=== PATIENT | male | born 2005 | race Caucasian/White ===

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

== ENCOUNTER 2025-04-16 11:34 | Emergency (ER) | payer MEDICAID, SELFPAY ==
[2024-10-04 15:58] VITALS: BP 152/99; BMI 47.0
[2025-04-16 11:38] VITALS: BP 130/82; PULSE 98; RESP 17; TEMP 36.8; O2SAT 96; BMI 45.3
--- NOTE | 2025-04-16 11:42 | ECG_ITS ---
[facility] Test Date: 2025-04-16 Pat Name: Byron Alvarez Department: Room: Gender: Male [employer]: : 2005 Requested By: Magno Bright Order Number: [id number] Grossman MD: Narendra Luther M.D. Measurements Intervals [place] Rate: 93 P: 53 NV: 128 QRS: 68 QRSD: 83 T: 55 QT: 318 QTc: 397 Interpretive Statements SINUS RHYTHM POSSIBLE RIGHT VENTRICULAR CONDUCTION DELAY [RSR (QR) IN V1/V2] Compared to ECG 03/26/2024 22:36:21 Sinus arrhythmia no longer present T-wave abnormality no longer present Electronically Signed On 04-18-2025 09:49:58 LADLE MECHANIC by Narendra Luther M.D. [email or web address]
--- NOTE | 2025-04-16 11:52 | XR_ITS ---
WS: [id number] XR chest 1V portable [id number] REASON FOR EXAM: sob FINDINGS: Chemotherapy infusion port over the right chest with trans right internal jugular infusion catheter with the tip in the distal SVC. The heart and the mediastinum are within normal limits. Calcified granulomatous disease bilaterally. No acute pulmonary parenchymal or pleural abnormality. No significant abnormality of the bony thorax. XR/XR chest 1V portable [id number] IMPRESSION: No acute chest abnormality.
[2025-04-16 12:36] LABS: Hematocrit 48.6 % (37-53); Hemoglobin 15.30 g/dL (13.2-15.6); Mean Corpuscular HGB Conc 31.5 g/dL (30-55); Mean Corpuscular Hemoglobin 27.6 pg (27-33); Mean Corpuscular Volume 87.7 fl (82-101); Nucleated Red Blood Cells % 0 %; Platelet Count 244 10^3/cmm (157-399); Red Blood Count 5.54 10^6/uL (3.85-5.65); White Blood Count 6.38 10^3/uL (4.5-13.0)
[2025-04-16 13:01] LABS: Alanine Aminotransferase 20 U/L (0-41); Albumin Level 4.5 g/dL (3.5-5.2); Alkaline Phosphatase 112 U/L (40-130); Anion Gap 15.3 (5-19); Aspartate Amino Transferase 21 U/L (0-40); Blood Urea Nitrogen 17 mg/dL (6-20); Calcium 10.4 mg/dL (8.5-10.5); Carbon Dioxide 29 mmol/L (22-29); Chloride 101 mmol/L (98-107); Globulin 3.5 g/dL (1.3-4.6); Glucose 85 mg/dL (65-115); Osmolality Calculated 293 mOsm/kg (285-295); Potassium 4.3 mmol/L (3.5-5.1); Sodium 141 mmol/L (136-145); Total Protein 8.0 g/dL (6.6-8.7)
--- NOTE | 2025-04-16 13:49 | ED_ITS ---
HPI - SOB/Dyspnea 2 General: Chief Complaint: Shortness of Breath/Dyspnea Stated Complaint: Pain coming from port and chest area SOB Time Seen by Provider: 04/16/25 13:48 History of Present Illness: HPI Narrative: 20-year-old man with a history of depres esha, obesity, borderline intellectual functioning, and testicular cancer status posttreatment with a port that has been placed who presents to the emergency room with complaints of shortness of breath and some pain in his port area for about a week now. He says he has been becoming more short of breath than his heart has been racing. He feels somewhat dizzy. No cough. No fevers. Lungs are clear. Related Data Previous Rx's ?Medication ?Instructions ?Recorded trazodone 50 mg tablet 50 mg PO BEDTIME PRN insomni a #60 12/08/24 tabs aripiprazole 15 mg tablet (Abilify) 15 mg PO DAILY #30 tabs 02/21/25 atomoxetine 40 mg capsule 40 mg PO DAILY #30 caps 01/30 09/22 venlafaxine 75 mg capsule,extended 75 mg PO DAILY #30 caps 02/21/25 release 24 hr (Effexor XR) Allergies Allergy/AdvReac Type Severity Reaction Status Date / Time azithromycin (From Zithromax) Allergy ALGY-Hives Verified 02/21/25 13:45 docusate (From Colace) Allergy Unknown Verified 02/21/25 13:45 guaifenesin (From Mucinex) Allergy ALGY-Rash Verified 02/21/25 13:45 loratadine (From Claritin) Allergy sob Verified 02/21/25 13:45 topiramate (From Topamax) Allergy ADR-Anxiety Verified 02/21/25 13:45 Review of Systems 2 Narrative: Constitutional symptoms: Negative except as documented in HPI. Skin symptoms: Negative except as documented in HPI. Eye symptoms: Negative except as documented in HPI. ENMT symptoms: Negative except as documented in HPI. Respiratory symptoms: Negative except as documented in HPI. Cardiovascular symptoms: Negative except as documented in HPI. Gastrointestinal symptoms: Negative except as documented in HPI. Genitourinary symptoms: Negative except as documented in HPI. Musculoskeletal symptoms: Negative except as documented in HPI. Neurologic symptoms: Negative except as documented in HPI. Psychiatric symptoms: Negative except as documented in HPI. Endocrine symptoms: Negative except as documented in HPI. 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 Depression Problems related to lack of adequate sleep Mood swings [facility] Psychiatric care Cognitive and neurobehavioral dysfunction Problems related to lack of adequate sleep Other [facility] extermin[facility] (current) drug therapy Family History Other Diabetes Psychiatric illness Social History (Updated 09/28/24 @ 14:00 by Trina Azevedo RN) Smoking and tobacco/nicotine status: current every day tobacco/nicotine user e- cigarettes E-Cigarette Details: vaporizer device and with nicotine E-cig/vape details: 15,000 puffs last 1 to 1 1/2 weeks Second hand smoke exposure: No Alcohol intake: never Substance/Drug Use: current Substance/Drug use frequency: daily Adopted: Yes Caregiver/support person: No Lives independently: Yes Household members: family Housing: Manufactured/Mobile home Marital status: Single Number of children: 0 Number of grandchildren: 0 Highest education level completed: 11th Grade Education level details: dropped out in 12th grade service: No Current occupational status: unemployed Current occupational exposures/hazards: No Pets and animals: Yes Pets & animals: dog(s) Leisure activites: art and games Sexually active: No Do you think of yourself as: Straight/Heterosexual Current gender identity: Male Vilma/Rastafari: Anabaptist Special vilma needs: No Agree to transfusion: Yes Physical Exam 2 Narrative: EXAM NARRATIVE: General: Alert, no acute distress. Skin: Warm, dry. Head: Normocephalic, atraumatic. Neck: Supple, trachea midline. Eye: Extraocular movements are intact. Ears, nose, mouth and throat: mucosa moist. Cardiovascular: Regular, Normal peripheral perfusion. Respiratory: Lungs are clear to auscultation, respirations are non-labored, breath sounds are equal, Symmetrical chest wall expansion. Gastrointestinal: Soft, Nontender, Non distended Musculoskeletal: Normal ROM, no deformity. Neurological: Alert and oriented, No focal neurological deficit observed. Psychiatric: Cooperative, appropriate mood & affect. Course 2 Vital Signs: Vital signs: Vital Signs Temperature 98.2 F 04/16/25 11:38 Pulse Rate 98 04/16/25 11:38 Respiratory Rate 17 04/16/25 11:38 Blood Pressure 130/82 04/16/25 11:38 Pulse Oximetry 96 04/16/25 11:38 Oxygen Delivery Me thod Room Air 04/16/25 11:38 MDM - SOB/Dyspnea Medical Decision Making Medical decision making Patient's reason for coming to the emergency room: Shortness of breath Social determinants: Patient is unemployed and has borderline intellectual functioning. I reviewed the patient's medical record. Patient has had multiple admissions for psychiatric issues to this hospital. I reviewed the patient's current home meds Patient only takes psychiatric chronic medications at this point. Alternate historians: None Differential diagnosis for patient with shortness of breath includes but is not limited to and based on the above HPI, review of systems and physical exam: Pneumonia. Bronchitis. Asthma or COPD with acute exacerbation. Acute coronary syndrome / CT. Pulmonary embolism. Anxiety. Congestive heart failure. Viral infections including influenza and Covid-19. Atrial fibrillation. Anxiety. Pleural effusion. Pneumothorax. Orders placed to evaluate differential diagnosis based on the above differential, HPI and physical exam EKG: Time 11:44 AM. Rate 93. Normal sinus rhythm, No ST-T changes, no ectopy, normal RI & QRS intervals, This was reviewed and interpreted by myself the ER physician at 11:50 AM Chest x-ray: Port is in place. No acute process. No infiltrate. No pneumothorax. This was reviewed and interpreted by myself the emergency room physician. I also reviewed the radiology report. Lab Review: Laboratory results were reviewed and interpreted by myself the emergency room physician. No leukocytosis. No anemia. No renal failure. Assessment of risk: Level of risk: Moderate risk patient. Psychiatric issues and low intellectual functioning. Hospitalization considerations: No consideration of hospitalization today. Assessment and plan: Shortness of breath - Discharged home - Discussed plan with patient. Answered any questions. - Evaluation and treatment of this problem were appropriate in the emergency setting. Lab Data 04/16/25 12:16 04/16/25 12:16 Labs/Radiology: Radiology Impressions Chest X-Ray 04/16/25 11:52 IMPRESSION: No acute chest abnormality. Laboratory Results WBC 6.38 10^3/uL (4.5-13.0) 04/16/25 12:16 RBC 5.54 10^6/uL (3.85-5.65) 04/16/25 12:16 Hgb 15.30 g/dL (13.2-15.6) 04/16/25 12:16 Hct 48.6 % (37-53) 04/16/25 12:16 MCV 87.7 fl (82-101) 04/16/25 12:16 MCH 27.6 pg (27-33) 04/16/25 12:16 MCHC 31.5 g/dL (30-55) 04/16/25 12:16 RDW 15.7 % (12.1-15.1) H 04/16/25 12:16 Plt Count 244 10^3/cmm (157-399) 04/16/25 12:16 MPV 9.3 fL (7.4-10.4) 04/16/25 12:16 Neut % (Auto) 66.8 % 04/16/25 12:16 Lymph % (Auto) 24.0 % 04/16/25 12:16 Carson % (Auto) 7.2 % 04/16/25 12:16 Eos % (Auto) 1.4 % 04/16/25 12:16 Baso % (Auto) 0.3 % 04/16/25 12:16 Neut # (Auto) 4.26 10^3/uL (1.8-8.0) 04/16/25 12:16 Lymph # (Auto) 1.5 10^3/uL (1.5-6.5) 04/16/25 12:16 Carson # (Auto) 0.5 10^3/uL (0.2-0.9) 04/16/25 12:16 Eos # (Auto) 0.1 10^3/uL (0.0-0.8) 04/16/25 12:16 Baso # (Auto) 0.0 10^3/uL (0.0-0.1) 04/16/25 12:16 Nucleated RBC % (auto) 0 % 04/16/25 12:16 Nucleated RBCs # 0.0 /100WBC 04/16/25 12:16 Sodium 141 mmol/L (136-145) 04/16/25 12:16 Potassium 4.3 mmol/L (3.5-5.1) 04/16/25 12:16 Chloride 101 mmol/L (98-107) 04/16/25 12:16 Carbon Dioxide 29 mmol/L (22-29) 04/16/25 12:16 Anion Gap 15.3 (5-19) 04/16/25 12:16 BUN 17 mg/dL (6-20) 04/16/25 12:16 Creatinine 1.2 mg/dL (0.7-1.2) 04/16/25 12:16 GFR Calculation 77.2 mL/min (90-130) L 04/16/25 12:16 Glucose 85 mg/dL (65-115) 04/16/25 12:16 Calculated Osmolality 293 mOsm/kg (285-295) 04/16/25 12:16 Calcium 10.4 mg/dL (8.5-10.5) 04/16/25 12:16 Total Bilirubin 0.4 mg/dL (0.15-1.2) 04/16/25 12:16 AST 21 U/L (0-40) 04/16/25 12:16 ALT 20 U/L (0-41) 04/16/25 12:16 Alkaline Phosphatase 112 U/L (40-130) 04/16/25 12:16 Total Protein 8.0 g/dL (6.6-8.7) 04/16/25 12:16 Albumin 4.5 g/dL (3.5-5.2) 04/16/25 12:16 Globulin 3.5 g/dL (1.3-4.6) 04/16/25 12:16 All radiology interpretation(s) finalized by discharge Discharge Plan Discharge Patient Disposition: Home Clinical Impression: Shortness of breath Condition: Stable Prescriptions: No Action trazodone 50 mg tablet 50 mg PO BEDTIME PRN (Reason: insomnia) Qty: 60 3RF Rx Instructions: 1-2 tablets at bed time as needed aripiprazole [Abilify] 15 mg tablet 15 mg PO DAILY Qty: 30 3RF venlafaxine [Effexor XR] 75 mg capsule,extended release 24hr 75 mg PO DAILY Qty: 30 3RF atomoxetine 40 mg capsule 40 mg PO DAILY Qty: 30 3RF Discharge Orders: Discharge ED (Routine); Ordered 04/16/25 Ordered By: Quin Young Referrals: Alison Mar DO [Primary Care Provider, Family Practice] Discharge Diet: Usual diet Discharge Activity: Increase activity as tolerated Patient Instructions: Opioid Safety, Pain Management, Patient Portal & [facility]har Instructions Activity Restrictions/Additional Instructions: Thank you for choosing [facility] for your healthcare needs today. You have been screened and evaluated and felt safe for discharge. Health conditions do change or evolve sometimes and as such it is important that you follow up with your Primary Doctor to be re checked, 3-5 days is a general good time frame for follow up. You are always welcome to return to the ED for re assessment if your symptoms are worsening or you have new concerns Print Language: [place] Islander Coding Level of Care Code ED Pyrotechnist for Farhat Garcia
== END 2025-04-16 13:58 | disposition home or self-care (01) ==
PROVIDERS: Physician Assistant; Emergency Provider Emergency Medicine; PCP Family Medicine
DX: R06.02 Shortness of breath (principal); F17.290 Nicotine dependence, other tobacco product, uncomplicated; Z85.47 Personal history of malignant neoplasm of testis
CPT/HCPCS: 36415; 71045; 80053; 85025; 93005; 99285

== ENCOUNTER 2025-05-03 11:29 | Inpatient (IN) | payer MEDICAID, SELFPAY ==
[2024-10-04 15:58] VITALS: BP 152/99; BMI 47.0
[2025-05-03 11:31] VITALS: BP 144/82; PULSE 92; RESP 18; TEMP 36.7; O2SAT 96; BMI 43.0
--- NOTE | 2025-05-03 11:34 | ED.C_ITS ---
Documented by User: EMILY [place] 05/03/25 12:43 HPI - Psych 2 General: Chief Complaint: Psychiatric Symptoms Stated Complaint: SI Time Seen by Provider: 05/03/25 11:33 Source: patient Mode of arrival: EMS Limitations: no limitations History of Present Illness: Patient is a 20-year-old male presents to ED today via EMS after his grandfather called 911 after patient was found to be outside with a knife stating he was going to kill himself. Patient admits to the accusations. He states either I am going to kill myself I am going to kill them . Them referring to his grandparents. He states he is sick and tired of living with them and having to do everything . Apparently there are several other individuals that who also live in the home. Patient is unemployed. He states he is disabled due to history of testicular cancer. Patient tells me several times that he wants to kill himself as well as his grandparents. MD complaint: suicidal ideation and feels depressed Onset (ago): day(s) Duration: constant History of same: Yes Context: significant life stressor Associated psychiatric symptoms: depression and suicidal ideation Associated symptoms: Reports depression, homicidal ideation and suicidal ideation; Deny auditory hallucinations or visual hallucinations If self harm: admits thoughts of self harm and has acted on plan (took knife outside with intent for self harm) Related Data Home Medications ?Medication ?Instructions ?Recorded ?Confirmed metformin 500 mg tablet,extended 500 mg PO BID 5 05/03/25 release 24 hr trazodone 50 mg tablet 50 - 100 mg PO BEDTIME PRN i nsomnia 05/03/25 05/03/25 Previous Rx's ?Medication ?Instructions ?Recorded aripiprazole 15 mg tablet (Abilify) 15 mg PO DAILY #30 tabs 02/21/25 atomoxetine 40 mg capsule 40 mg PO DAILY #30 caps 01/30 09/22 venlafaxine 75 mg capsule,extended 75 mg PO DAILY #30 caps 02/21/25 release 24 hr (Effexor XR) Allergies Allergy/AdvReac Type Severity Reaction Status Date / Time azithromycin (From Zithromax) Allergy ALGY-Hives Verified 02/21/25 13:45 docusate (From Colace) Allergy Unknown Verified 02/21/25 13:45 guaifenesin (From Mucinex) Allergy ALGY-Rash Verified 02/21/25 13:45 loratadine (From Claritin) Allergy sob Verified 02/21/25 13:45 topiramate (From Topamax) Allergy ADR-Anxiety Verified 02/21/25 13:45 Review of Systems 2 Const: Denies: fever(s) or chills Card: Denies: chest pain, palpitations, lightheadedness or syncope Resp: Denies: dyspnea GI: Denies: abdominal pain, nausea, vomiting or diarrhea Skin/Breast: Denies: rash Neuro: Denies: headache(s) Psych: Reports: anxiety, depression, mood swings, hopelessness, loss of interest, irritability, suicidal ideation and homicidal ideation; Denies: visual hallucinations or auditory hallucinations PFSH ED 2 PFSH: Medical History Episode of recurrent major depressive disorder, unspecified depression episode severity 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 Depression Problems related to lack of adequate sleep Mood swings Other shelter (current) drug therapy Psychiatric care Cognitive and neurobehavioral dysfunction Problems related to lack of adequate sleep 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 school principal (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) drug therapy Family History Other Diabetes Psychiatric illness Social History Smoking and tobacco/nicotine status: current every day tobacco/nicotine user e- cigarettes E-Cigarette Details: vaporizer device and with nicotine E-cig/vape details: 15,000 puffs last 1 to 1 1/2 weeks Second hand smoke exposure: No Alcohol intake: never Substance/Drug Use: current Substance/Drug use frequency: daily Adopted: Yes Caregiver/support person: No Lives independently: Yes Household members: family Housing: Manufactured/Mobile home Marital status: Single Number of children: 0 Number of grandchildren: 0 Highest education level completed: 11th Grade Education level details: dropped out in 12th grade service: No Current occupational status: unemployed Current occupational exposures/hazards: No Pets and animals: Yes Pets & animals: dog(s) Leisure activites: art and games Sexually active: No Do you think of yourself as: Straight/Heterosexual Current gender identity: Male Vilma/Gnosticist: Amish Special vilma needs: No Agree to transfusion: Yes Physical Exam 2 Const: COMMON NORMALS: no acute distress, patient oriented x3, no limitations, alert and well nourished GENERAL APPEARANCE: cooperative NUTRITIONAL APPEARANCE: obese morbidly obese (BMI 43.0) ORIENTATION/CONSCIOUSNESS: Yes awake, Yes oriented to person, Yes oriented to place and Yes oriented to time Eye: COMMON NORMALS: no scleral icterus Resp: COMMON NORMALS: normal respiratory effort and clear to auscultation bilaterally AUSCULTATION: clear to auscultation bilaterally Cardio: COMMON NORMALS: regular rate and regular rhythm RATE: regular rate RHYTHM: regular rhythm Neuro: COMMON NORMALS: patient oriented x3, moves all extremities, no focal motor deficits, no sensory deficits noted and gait normal S ENSORIUM/ORIENTATION: Yes alert, Yes oriented to person, Yes oriented to place and Yes oriented to time Psych: COMMON NORMALS: mental status grossly normal, Normal thought process present, cooperative, normal affect, speech normal and activity/motor behavior normal APPEARANCE: Yes grossly normal ATTITUDE: Yes calm ACTIVITY/MOTOR BEHAVIOR: No psychomotor agitation and Yes Avoids eye contact (attititude/behavior) SPEECH: Yes normal speech MOOD & AFFECT: Yes Flat affect present THOUGHT PROCESS: Normal thought process present THOUGHT CONTENT: Yes Suicidality present and Yes Homicidality present A TTENTION/CONCENTRATION: Yes attention grossly intact and Yes concentration grossly intact MEMORY/COGNITION: Yes memory grossly intact and Yes cognition grossly intact INSIGHT: Fair insight present (Psych) JUDGEMENT: Fair judgement present (Psych) Course 2 Consultations: Consultation #1: Dr. Su-accepts admission to [facility]PU Vital Signs: Vital signs: Vital Signs Temperature 98.2 F 05/03/25 12:53 Pulse Rate 84 05/03/25 14:00 Respiratory Rate 16 05/03/25 14:00 Blood Pressure 117/73 05/03/25 14:00 Pulse Oximetry 99 05/03/25 14:00 Oxygen Delivery Me thod Room Air 05/03/25 14:00 MDM - Psych Medical Decision Making Patient will be placed on a 96-hour hold and plan will be for him to be admitted to NPU. Differential Diagnosis Likely suicidal ideation, bipolar disorder, depression, drug-induced psychotic disorder and acute anxiety Medical Records I reviewed the patient's medical records. Lab Data I reviewed the patient's lab results. 05/03/25 11:50 05/03/25 11:50 Laboratory Results WBC 6.18 10^3/uL (4.5-13.0) 05/03/25 11:50 RBC 5.56 10^6/uL (3.85-5.65) 05/03/25 11:50 Hgb 15.60 g/dL (13.2-15.6) 05/03/25 11:50 Hct 48.0 % (37-53) 05/03/25 11:50 MCV 86.3 fl (82-101) 05/03/25 11:50 MCH 28.1 pg (27-33) 05/03/25 11:50 MCHC 32.5 g/dL (30-55) 05/03/25 11:50 RDW 15.8 % (12.1-15.1) H 05/03/25 11:50 Plt Count 214 10^3/cmm (157-399) 05/03/25 11:50 MPV 8.9 fL (7.4-10.4) 05/03/25 11:50 Neut % (Auto) 68.5 % 05/03/25 11:50 Lymph % (Auto) 20.7 % 05/03/25 11:50 [place] % (Auto) 8.6 % 05/03/25 11:50 Eos % (Auto) 1.6 % 05/03/25 11:50 Baso % (Auto) 0.3 % 05/03/25 11:50 Neut # (Auto) 4.23 10^3/uL (1.8-8.0) 05/03/25 11:50 Lymph # (Auto) 1.3 10^3/uL (1.5-6.5) L 05/03/25 11:50 [place] # (Auto) 0.5 10^3/uL (0.2-0.9) 05/03/25 11:50 Eos # (Auto) 0.1 10^3/uL (0.0-0.8) 05/03/25 11:50 Baso # (Auto) 0.0 10^3/uL (0.0-0.1) 05/03/25 11:50 Nucleated RBC % (auto) 0 % 05/03/25 11:50 Nucleated RBCs # 0.0 /100WBC 05/03/25 11:50 Sodium 143 mmol/L (136-145) 05/03/25 11:50 Potassium 3.8 mmol/L (3.5-5.1) 05/03/25 11:50 Chloride 107 mmol/L (98-107) 05/03/25 11:50 Carbon Dioxide 25 mmol/L (22-29) 05/03/25 11:50 Anion Gap 14.8 (5-19) 05/03/25 11:50 BUN 22 mg/dL (6-20) H 05/03/25 11:50 Creatinine 1.2 mg/dL (0.7-1.2) 05/03/25 11:50 GFR Calculation 77.2 mL/min (90-130) L 05/03/25 11:50 Glucose 103 mg/dL (65-115) 05/03/25 11:50 Calculated Osmolality 300 mOsm/kg (285-295) H 05/03/25 11:50 Calcium 10.1 mg/dL (8.5-10.5) 05/03/25 11:50 Total Bilirubin 0.4 mg/dL (0.15-1.2) 05/03/25 11:50 AST 17 U/L (0-40) 05/03/25 11:50 ALT 18 U/L (0-41) 05/03/25 11:50 Alkaline Phosphatase 112 U/L (40-130) 05/03/25 11:50 Total Protein 7.8 g/dL (6.6-8.7) 05/03/25 11:50 Albumin 4.4 g/dL (3.5-5.2) 05/03/25 11:50 Globulin 3.4 g/dL (1.3-4.6) 05/03/25 11:50 Salicylates < 0.3 mg/dL (3-10) L 05/03/25 11:50 Acetaminophen < 5.0 ug/mL (10-30) L 05/03/25 11:50 Ethyl Alcohol < 10 mg/dL (0-10) 05/03/25 11:50 No radiology studies performed this visit Discharge Plan Discharge Patient Disposition: Admitted As Inpatient Admit Provider: Reilyl Su Clinical Impression: Suicidal ideation, Homicidal ideation, Involuntary commitment Condition: Stable Coding Level of Care Code ED Learning Development Specialist for Chg Fwd Documented by User: Magno Ng DO 05/03/25 17:54 HPI - Psych 2 General: Chief Complaint: Psychiatric Symptoms Stated Complaint: SI Time Seen by Provider: 05/03/25 11:33 Related Data Home Medications ?Medication ?Instructions ?Recorded ?Confirmed metformin 500 mg tablet,extended 500 mg PO BID 5 05/03/25 release 24 hr trazodone 50 mg tablet 50 - 100 mg PO BEDTIME PRN i nsomnia 05/03/25 05/03/25 Previous Rx's ?Medication ?Instructions ?Recorded aripiprazole 15 mg tablet (Abilify) 15 mg PO DAILY #30 tabs 02/21/25 atomoxetine 40 mg capsule 40 mg PO DAILY #30 caps 01/30 09/22 venlafaxine 75 mg capsule,extended 75 mg PO DAILY #30 caps 02/21/25 release 24 hr (Effexor XR) Allergies Allergy/AdvReac Type Severity Reaction Status Date / Time azithromycin (From Zithromax) Allergy ALGY-Hives Verified 02/21/25 13:45 docusate (From Colace) Allergy Unknown Verified 02/21/25 13:45 guaifenesin (From Mucinex) Allergy ALGY-Rash Verified 02/21/25 13:45 loratadine (From Claritin) Allergy sob Verified 02/21/25 13:45 topiramate (From Topamax) Allergy ADR-Anxiety Verified 02/21/25 13:45 PFSH ED 2 PFSH: Medical History Episode of recurrent major depressive disorder, unspecified depression episode severity 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 Depression Problems related to lack of adequate sleep Mood swings 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 school principal (current) drug therapy Psychiatric care Cognitive and neurobehavioral dysfunction Problems related to lack of adequate sleep 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 school principal (current) drug therapy Family History Other Diabetes Psychiatric illness Social History (Reviewed 05/03/25 @ 12:01 by FILIPE [place] Smoking and tobacco/nicotine status: current every day tobacco/nicotine user e- cigarettes E-Cigarette Details: vaporizer device and with nicotine E-cig/vape details: 15,000 puffs last 1 to 1 1/2 weeks Second hand smoke exposure: No Alcohol intake: never Substance/Drug Use: current Substance/Drug use frequency: daily Adopted: Yes Caregiver/support person: No Lives independently: Yes Household members: family Housing: Manufactured/Mobile home Marital status: Single Number of children: 0 Number of grandchildren: 0 Highest education level completed: 11th Grade Education level details: dropped out in 12th grade service: No Current occupational status: unemployed Current occupational exposures/hazards: No Pets and animals: Yes Pets & animals: dog(s) Leisure activites: art and games Sexually active: No Do you think of yourself as: Straight/Heterosexual Current gender identity: Male Vilma/Gnosticist: Amish Special vilma needs: No Agree to transfusion: Yes Course 2 Vital Signs: Vital signs: Vital Signs Temperature 98.2 F 05/03/25 12:53 Pulse Rate 84 05/03/25 14:00 Respiratory Rate 16 05/03/25 14:00 Blood Pressure 117/73 05/03/25 14:00 Pulse Oximetry 99 05/03/25 14:00 Oxygen Delivery Me thod Room Air 05/03/25 14:00 MDM - Psych Medical Decision Making Patient will be placed on a 96-hour hold and plan will be for him to be admitted to NPU. Chart reviewed and patient discussed with midlevel. Agree with assessment and plan. Lab Data 05/03/25 11:50 05/03/25 11:50 Laboratory Results WBC 6.18 10^3/uL (4.5-13.0) 05/03/25 11:50 RBC 5.56 10^6/uL (3.85-5.65) 05/03/25 11:50 Hgb 15.60 g/dL (13.2-15.6) 05/03/25 11:50 Hct 48.0 % (37-53) 05/03/25 11:50 MCV 86.3 fl (82-101) 05/03/25 11:50 MCH 28.1 pg (27-33) 05/03/25 11:50 MCHC 32.5 g/dL (30-55) 05/03/25 11:50 RDW 15.8 % (12.1-15.1) H 05/03/25 11:50 Plt Count 214 10^3/cmm (157-399) 05/03/25 11:50 MPV 8.9 fL (7.4-10.4) 05/03/25 11:50 Neut % (Auto) 68.5 % 05/03/25 11:50 Lymph % (Auto) 20.7 % 05/03/25 11:50 [place] % (Auto) 8.6 % 05/03/25 11:50 Eos % (Auto) 1.6 % 05/03/25 11:50 Baso % (Auto) 0.3 % 05/03/25 11:50 Neut # (Auto) 4.23 10^3/uL (1.8-8.0) 05/03/25 11:50 Lymph # (Auto) 1.3 10^3/uL (1.5-6.5) L 05/03/25 11:50 [place] # (Auto) 0.5 10^3/uL (0.2-0.9) 05/03/25 11:50 Eos # (Auto) 0.1 10^3/uL (0.0-0.8) 05/03/25 11:50 Baso # (Auto) 0.0 10^3/uL (0.0-0.1) 05/03/25 11:50 Nucleated RBC % (auto) 0 % 05/03/25 11:50 Nucleated RBCs # 0.0 /100WBC 05/03/25 11:50 Sodium 143 mmol/L (136-145) 05/03/25 11:50 Potassium 3.8 mmol/L (3.5-5.1) 05/03/25 11:50 Chloride 107 mmol/L (98-107) 05/03/25 11:50 Carbon Dioxide 25 mmol/L (22-29) 05/03/25 11:50 Anion Gap 14.8 (5-19) 05/03/25 11:50 BUN 22 mg/dL (6-20) H 05/03/25 11:50 Creatinine 1.2 mg/dL (0.7-1.2) 05/03/25 11:50 GFR Calculation 77.2 mL/min (90-130) L 05/03/25 11:50 Glucose 103 mg/dL (65-115) 05/03/25 11:50 Calculated Osmolality 300 mOsm/kg (285-295) H 05/03/25 11:50 Calcium 10.1 mg/dL (8.5-10.5) 05/03/25 11:50 Total Bilirubin 0.4 mg/dL (0.15-1.2) 05/03/25 11:50 AST 17 U/L (0-40) 05/03/25 11:50 ALT 18 U/L (0-41) 05/03/25 11:50 Alkaline Phosphatase 112 U/L (40-130) 05/03/25 11:50 Total Protein 7.8 g/dL (6.6-8.7) 05/03/25 11:50 Albumin 4.4 g/dL (3.5-5.2) 05/03/25 11:50 Globulin 3.4 g/dL (1.3-4.6) 05/03/25 11:50 Salicylates < 0.3 mg/dL (3-10) L 05/03/25 11:50 Acetaminophen < 5.0 ug/mL (10-30) L 05/03/25 11:50 Ethyl Alcohol < 10 mg/dL (0-10) 05/03/25 11:50 Discharge Plan Discharge Patient Disposition: Admitted As Inpatient Admit Provider: Reilly Su Clinical Impression: Suicidal ideation, Homicidal ideation, Involuntary commitment Condition: Stable Coding Level of Care Code ED Learning Development Specialist for Farhat Garcia
[2025-05-03 11:58] LABS: Hematocrit 48.0 % (37-53); Hemoglobin 15.60 g/dL (13.2-15.6); Mean Corpuscular HGB Conc 32.5 g/dL (30-55); Mean Corpuscular Hemoglobin 28.1 pg (27-33); Mean Corpuscular Volume 86.3 fl (82-101); Nucleated Red Blood Cells % 0 %; Platelet Count 214 10^3/cmm (157-399); Red Blood Count 5.56 10^6/uL (3.85-5.65); White Blood Count 6.18 10^3/uL (4.5-13.0)
--- NOTE | 2025-05-03 12:05 | PC.NURSE ---
PT refusing to give urine sample. PT educated on need to check urine, PT states i dont fucking care
[2025-05-03 12:22] LABS: Alanine Aminotransferase 18 U/L (0-41); Albumin Level 4.4 g/dL (3.5-5.2); Alkaline Phosphatase 112 U/L (40-130); Anion Gap 14.8 (5-19); Aspartate Amino Transferase 17 U/L (0-40); Blood Urea Nitrogen 22 mg/dL (6-20); Calcium 10.1 mg/dL (8.5-10.5); Carbon Dioxide 25 mmol/L (22-29); Chloride 107 mmol/L (98-107); Globulin 3.4 g/dL (1.3-4.6); Glucose 103 mg/dL (65-115); Osmolality Calculated 300 mOsm/kg (285-295); Potassium 3.8 mmol/L (3.5-5.1); Sodium 143 mmol/L (136-145); Total Protein 7.8 g/dL (6.6-8.7)
--- NOTE | 2025-05-03 12:31 | PC.NURSE ---
96 hr rights reviewed with pt @[id number] with assistance of [facility] residential care officer Bird All education reviewed with pt at this time. Pt verbalized understanding to hold parameters. Copy of rights left with pt. Pt declined wanting a drink or snack when asked. No further needs.
[2025-05-03 12:34] LABS: Acetaminophen < 5.0 ug/mL (10-30); Alcohol Level < 10 mg/dL (0-10); Salicylate < 0.3 mg/dL (3-10)
--- NOTE | 2025-05-03 12:36 | PC.NURSE ---
PT banged head against wall, witnessed by sitter, No visable wounds or contusions noted. This nurse and charge nurse to room. Pt stated he would not like any medication for anxiety. PT verbally agreed to calm down and cooperate with staff. This nurse made Tania Castorena aware of situation, Kell stated she would not like to medicate against PT wishes if he can be verbally de-escalated.
--- NOTE | 2025-05-03 12:44 | PC.PHAR ---
Most current med list faxed from [facility] with last fill date and day supply in pharmacy notes.
[2025-05-03 12:53] VITALS: BP 135/84; PULSE 92; RESP 18; TEMP 36.8; O2SAT 97
--- NOTE | 2025-05-03 13:06 | PC.NURSE ---
PT agreed to take PO medication to help calm him before transferring to NPU. Tania Castorena aware and placed order for 2MG PO Ativan. PT calm and cooperative during medication administration and transfer. PT transferred to NPU with this nurse and security
[2025-05-03 14:00] VITALS: BP 117/73; PULSE 84; RESP 16; O2SAT 99
--- NOTE | 2025-05-03 15:30 | PC.NURSE ---
offal worker & INSULATOR TECHNICIAN alerted nursing staff that pt started visibly shaking and appeared diaphoretic. Pt blood sugar was 53. Pt was asked about how long has the shakiness & sweaty feelings were going on and pt stated it started to appear more frequently within the last week. Pt stated that it occurs when he starves himself because the food availability at his grandmas house where he lives has decreased. The pt also stated that he wishes at times to starve himself as self harm and when he becomes shaky he likes to lay in misery . Pt was given two orange juices / sandwhich / whole milk. Pt ate / drank all the food given to him. Pt blood sugar rechecked 15-20 later and it was 63. Pt blood sugar rechecked again an hour later and it was 93.
[2025-05-03] MEDS: diphenhydrAMINE 50 mg/mL SDV 1mL IM (16:36)
[2025-05-03] MEDS: haloperidol inj 5 mg/mL INJ 1 mL IM (16:36)
[2025-05-03] MEDS: LORazepam 2 mg/mL INJ 1 mL IM (16:36)
--- NOTE | 2025-05-03 17:10 | PC.NURSE ---
Nurse alerted by PROSTHETIST that pt was digging his pt bracelet into his wrist. Pt had bracelet taken away by the PROSTHETIST. While staff was talking w/ pt, he began to hit himself in the face with his fists. This RN and PROSTHETIST alerted security who was in the nurses station as we held the pts hands to stop him from hitting himself. The staff talked w/ the pt about why he was wanting to harm himself and the pt stated nobody at homes cares about me anymore and that makes me the happiest and I want to kill myself and because I hate them and I hate this hospital and I wish I could kill my grandpa for making me come here and I am tired of hiding my emotions about everything and I will continue to hurt myself . The pt was agreeable to taking an IM B-52 but stated Even if I get sleepy, when I wake up I am going to keep trying to hurt myself . Pt was unable to contract for safety. Pt cont. to lay in bed after IM injections. One to one sitter observations continued.
[2025-05-03 18:40] LABS: PCP Screen Urine Negative (Negative)
[2025-05-03 20:40] VITALS: BP 111/70; PULSE 66; RESP 18; O2SAT 95
[2025-05-04 06:00] VITALS: BP 118/71; PULSE 83; RESP 16; TEMP 37.1; O2SAT 97
--- NOTE | 2025-05-04 10:45 | W.PM.NPUH&PS ---
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 follow up with the aftercare recommendations of the treatment team. The patient was evaluated and deemed to be absent credible lethality and had achieved the maximum benefit from an inpatient hospitalization, and so was discharged. The patient had initially admitted to having active suicidal ideation and was placed on one-to-one constant observation. He was agreeable to restarting Abilify and this medication was titrated up to 15 mg a day at the time of discharge with reported improvement in regards to mood stability. The patient had reported that he had been noncompliant with his appointments with his urologist that had removed a testicular mass that appeared cancerous several months ago. Medical team was consulted and repeat CT of the pelvis and abdomen were performed along with a serum alpha-fetoprotein. The patient's AFP was elevated at 700.3 and the findings on the CT had suggested some retroperitoneal lymphadenopathy with large lymph nodes appreciated. The patient and the family were provided a copy of these results and were strongly urged to follow-up as soon as possible with their urologist. Meds NPU Home Medications ?Medication ?Instructions ?Recorded ?Confirmed ?Last Taken ?Type aripiprazole 15 mg tablet (Abilify) 15 mg PO DAILY #30 tabs 02/21/25 05/03/25 Unknown Rx atomoxetine 40 mg capsule 40 mg PO DAILY #30 caps 02/21/25 05/03/25 Unknown Rx venlafaxine 75 mg capsule,extended 75 mg PO DAILY #30 caps 02/21/25 05/03/25 Unknown Rx release 24 hr (Effexor XR) metformin 500 mg tablet,extended 500 mg PO BID 05/03/25 05/03/25 Unknown History release 24 hr trazodone 50 mg tablet 50 - 100 mg PO BEDTIME PRN insomnia 05/03/25 05/03/25 Unknown History Allergies Allergy/AdvReac Type Severity Reaction Status Date / Time azithromycin (From Zithromax) Allergy ALGY-Hives Verified 02/21/25 13:45 docusate (From Colace) Allergy Unknown Verified 02/21/25 13:45 guaifenesin (From Mucinex) Allergy ALGY-Rash Verified 02/21/25 13:45 loratadine (From Claritin) Allergy sob Verified 02/21/25 13:45 topiramate (From Topamax) Allergy ADR-Anxiety Verified 02/21/25 13:45 PFSH NPU PFSH: Medical History (Updated 05/03/25 @ 12:03 by EMILY [place]) Episode of recurrent major depressive disorder, unspecified depression episode severity 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 Depression Problems related to lack of adequate sleep Mood swings 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 Psychiatric care Cognitive and neurobehavioral dysfunction Problems related to lack of adequate sleep 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 Family History Other Diabetes Psychiatric illness Social History Smoking and tobacco/nicotine status: current every day tobacco/nicotine user e-cigarettes E-Cigarette Details: vaporizer device and with nicotine E-cig/vape details: 15,000 puffs last 1 to 1 1/2 weeks Second hand smoke exposure: No Alcohol intake: never Substance/Drug Use: current Substance/Drug use frequency: daily Adopted: Yes Caregiver/support person: No Lives independently: Yes Household members: family Housing: Manufactured/Mobile home Marital status: Single Number of children: 0 Number of grandchildren: 0 Highest education level completed: 11th Grade Education level details: dropped out in 12th grade service: No Current occupational status: unemployed Current occupational exposures/hazards: No Pets and animals: Yes Pets & animals: dog(s) Leisure activites: art and games Sexually active: No Do you think of yourself as: Straight/Heterosexual Current gender identity: Male Vilma/Latter Day: Voodoo Special vilma needs: No Agree to transfusion: Yes Mental Status Exam MSE Comments: This is a morbidly obese, white male, in hospital scrubs, with limited grooming and eye contact with poor hygiene and malodorous. No abnormal involuntary motor movements, except for prominent psychomotor retardation. He was mostly uncooperative with exam in mild distress. Speech was decreased in rate and normal in volume and monotone in quality. Mood described as depressed. Affect was restricted in range and mood congruent. Thought process was linear and organized. Thought content: patient denied any homicidal ideation minimized suicidal ideation with no plan but endorsed being open to dying by freezing the homeless. There were no delusions reported or noted, patient denied any auditory or visual hallucinations. Attention, concentration, and memory appeared intact, but none were formally tested. Patient was alert and oriented x3. Insight and judgment appear poor. Impulse control is poor. Intellectual ability appeared limited versus impaired. Vitals/I&O/Wt Last Vital Signs Temp 98.8 F 05/04/25 06:00 Pulse 83 05/04/25 06:00 Resp 16 05/04/25 06:00 BP 118/71 05/04/25 06:00 Pulse Ox 97 05/04/25 06:00 O2 Del Method Room Air 05/04/25 06:00 Weight last 48 hrs Weight 136.078 kg Data NPU 05/03/25 11:50 05/03/25 11:50 A&P Assessment and plan 1. Suicidal ideation: 2. Generalized anxiety disorder: 3. Mild intellectual disability: 4. Borderline intellectual functionin. Major depressive disorder, recurrent: 6. DMDD (disruptive mood dysregulation disorder): 7. Bipolar disorder current episode depressed: Plan: This is a 20-year-old, white male, with a long history of mental health issues, who presented to the hospital because of suicidal thoughts and homicidal thoughts, aggressive feelings towards his family due to disagreements recently and a history of multiple inpatient hospitalizations, hx of alleged testicular cancer and once again noncompliant with medication reporting that he is lacking any willingness to collaborate in treatment, take medications and would rather just . 1. Recommend restarting Abilify with goal for long-acting injectable 2. Continue 15-minute checks for safety. 3. Encourage individual, group, and milieu therapies. 4. Gather collateral information. 5. Encouraged sober living treatment after discharge at the highest level care to which he is willing to commit. 6. Evaluate against the backdrop of the 96-hour hold. PDMP PDMP Reviewed: Not Reviewed Involuntary Hold Information Hold Status: Legal Status: 96 Hour Hold Date/Time Hold Expires: 05/09/25 @ 11:45 96 Hour Hold: 96 Hour Involuntary Admission: Yes Other Hold: Hold End Date: 03/31/24 Attestations NPU Medical Necessity Statement*: Inpatient hospitalization is medically necessary and the clinically appropriate intervention at this time.? We will monitor medications and make changes as indicated.? He will be in the hospital for over 2 midnights.? Likely length of stay 5-7 days.? Coding Level of Care Code Acute Code for [facility] Fwd Diagnoses Suicidal ideation R45.851 Generalized anxiety disorder F41.1 Mild intellectual disability F70 Borderline intellectual functioning R41.83 Major depressive disorder, recurrent F33.9 DMDD (disruptive mood dysregulation disorder) F34.81 Bipolar disorder current episode depressed F31.30
--- NOTE | 2025-05-04 11:12 | PC.OT ---
Hold OT evaluation due to sleeping soundly; will attempt again at a later time.
[2025-05-04 14:00] VITALS: BP 109/73; PULSE 87; RESP 16; TEMP 36.4; O2SAT 99
[2025-05-04] MEDS: LORazepam 2 mg/mL INJ 1 mL IM (17:40)
[2025-05-04] MEDS: diphenhydrAMINE 50 mg/mL SDV 1mL IM (17:40)
[2025-05-04] MEDS: haloperidol inj 5 mg/mL INJ 1 mL IM (17:40)
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
[2025-05-04 20:29] VITALS: BP 138/88; PULSE 85; RESP 19; TEMP 36.9; O2SAT 97
[2025-05-05] VITALS (8 sets, daily range): BP systolic 124–144; BP diastolic 67–85; PULSE 76–94; RESP 16; O2SAT 97
--- NOTE | 2025-05-05 06:22 | PC.NURSE ---
vitals not obtined per charge nurse, resp 16, pt in bed sleeping
[2025-05-05] MEDS: diphenhydrAMINE 50 mg/mL SDV 1mL IM ×2 (09:34→17:42)
[2025-05-05] MEDS: LORazepam 2 mg/mL INJ 1 mL IM ×3 (09:34→17:00)
[2025-05-05] MEDS: haloperidol inj 5 mg/mL INJ 1 mL IM ×2 (09:34→16:43)
--- NOTE | 2025-05-05 12:05 | PC.OT ---
OT evaluation attempted with nursing stating to hold pt due to pt being in restraints following code 10; will attempt again at later time.
--- NOTE | 2025-05-05 12:38 | PC.NURSE ---
pt resting in bed when lunch came. pt was in given med for behavior. nurse aware
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
[2025-05-05] MEDS: haloperidol inj 5 mg/mL INJ 1 mL 10 MG IM (17:00)
--- NOTE | 2025-05-05 17:41 | PC.NURSE ---
pt is currently in restraint bed due to a code10 will offer snack when pt is released from the restraints nurse is aware
[2025-05-05 18:04] LABS: Hematocrit 52.3 % (37-53); Hemoglobin 16.10 g/dL (13.2-15.6); Mean Corpuscular HGB Conc 30.8 g/dL (30-55); Mean Corpuscular Hemoglobin 28.0 pg (27-33); Mean Corpuscular Volume 90.8 fl (82-101); Nucleated Red Blood Cells % 0 %; Platelet Count 219 10^3/cmm (157-399); Red Blood Count 5.76 10^6/uL (3.85-5.65); White Blood Count 5.93 10^3/uL (4.5-13.0)
[2025-05-05 18:47] LABS: Alanine Aminotransferase 20 U/L (0-41); Albumin Level 4.3 g/dL (3.5-5.2); Alkaline Phosphatase 111 U/L (40-130); Anion Gap 17.6 (5-19); Aspartate Amino Transferase 21 U/L (0-40); Blood Urea Nitrogen 19 mg/dL (6-20); Calcium 9.9 mg/dL (8.5-10.5); Carbon Dioxide 24 mmol/L (22-29); Chloride 104 mmol/L (98-107); Globulin 3.4 g/dL (1.3-4.6); Glucose 85 mg/dL (65-115); Osmolality Calculated 296 mOsm/kg (285-295); Potassium 3.6 mmol/L (3.5-5.1); Sodium 142 mmol/L (136-145); Total Protein 7.7 g/dL (6.6-8.7)
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
[2025-05-05 19:32] LABS: HIV 1 & 2 Antigen Non-Reactive (Non-Reactiv)
[2025-05-05 21:26] LABS: Hepatitis B Surface Antigen Non-Reactive (Nonreactive)
[2025-05-06 06:00] VITALS: BP 118/65; PULSE 117; RESP 18; TEMP 36.6; O2SAT 95
[2025-05-06 14:00] VITALS: RESP 16
[2025-05-06] MEDS: LORazepam 2 mg/mL INJ 1 mL IM (17:01)
[2025-05-06] MEDS: diphenhydrAMINE 50 mg/mL SDV 1mL IM (17:02)
[2025-05-06] MEDS: haloperidol inj 5 mg/mL INJ 1 mL 10 MG IM (17:03)
--- NOTE | 2025-05-06 17:28 | P.NPUPN_ITS ---
Subjective NPU 2 Subjective: Patient presented today reporting that he is doing okay. He however tends to be okay when he is under the influence of as needed medication. He continues to report that he has no interest in oral standing doses of medications only wanting to get back to cannabis as his standard treatment for what ever ailes him. We continue to discussed that there needs to be some balance in his situation at home and in general. However he continues to say that he either wants to do it his way or except that he is going to be homeless and do it his way and if that is the case he wants to . Mental Status Exam 2 MSE Comments: This is a morbidly obese, white male, in hospital scrubs, with limited grooming and eye contact with poor hygiene and malodorous. No abnormal involuntary motor movements, except for prominent psychomotor retardation juxtaposed with moments of extreme psychomotor agitation leading to restraints. He was mostly uncooperative with exam current mild but previous extreme distress. Speech was decreased in rate and normal in volume and monotone in quality. Mood described as depressed. Affect was restricted in range and mood congruent. Thought process was linear and organized. Thought content: patient denied any homicidal ideation minimized suicidal ideation with no plan but endorsed being open to dying by freezing the homeless. There were no delusions reported or noted, patient denied any auditory or visual hallucinations. Attention, concentration, and memory appeared intact, but none were formally tested. Patient was alert and oriented x3. Insight and judgment appear poor. Impulse control is poor. Intellectual ability appeared limited versus impaired. Vitals/I&O/Wt Last Vital Signs Temp 97.8 F 05/06/25 06:00 Pulse 117 H 05/06/25 06:00 Resp 16 05/06/25 14:00 BP 118/65 05/06/25 06:00 Pulse Ox 95 05/06/25 06:00 O2 Del Method Room Air 05/04/25 20:29 Data NPU 05/05/25 17:59 05/05/25 17:59 A&P Assessment and plan 1. Suicidal ideation: 2. Generalized anxiety disorder: 3. Mild intellectual disability: 4. Borderline intellectual functionin. Major depressive disorder, recurrent: 6. DMDD (disruptive mood dysregulation disorder): 7. Bipolar disorder current episode depressed: Plan: This is a 20-year-old, white male, with a long history of mental health issues, who presented to the hospital because of suicidal thoughts and homicidal thoughts, aggressive feelings towards his family due to disagreements recently and a history of multiple inpatient hospitalizations, hx of alleged testicular cancer and once again noncompliant with medication reporting that he is lacking any willingness to collaborate in treatment, take medications and would rather just . 1. Recommend restarting Abilify with goal for long-acting injectable. Patient continued to refuse medication but continue to get significant as needed medication with each of his outburst. He has continued to get his medication via as needed circumstances with today they are only being 1 significant outburst but the need for IM medication has been critical and keeping him safe and the staff safe as he has generally required restraints multiple times each day. Today he had an episode towards the end of that shift but I am medication offered as he would not do p.o. medication was able to prevent an event today. 2. Continue 1:1 checks for safety. 3. Encourage individual, group, and milieu therapies. 4. Gather collateral information. 5. Encouraged sober living treatment after discharge at the highest level care to which he is willing to commit. 6. Evaluate against the backdrop of the 96-hour hold. 7. Recommend CT scan after the latest episode but patient unwilling to contract for safety and currently is too agitated to attempt a CT. Discussed the need to keep him safe as well as staff safe and right now he is current behavior is antithetical to that plan for CT. PDMP PDMP Reviewed: Not Reviewed Involuntary Hold Information 2 Hold Status: Legal Status: 96 Hour Hold Date/Time Hold Expires: 05/09/25 @ 11:45 96 Hour Hold: 96 Hour Involuntary Admission: Yes Other Hold: Hold End Date: 03/31/24 Attestations NPU 2 Medical Necessity Statement*: Inpatient hospitalization is medically necessary and the clinically appropriate intervention at this time.? We will monitor medications and make changes as indicated.? Likely length of stay 5-7 days.? 

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
--- NOTE | 2025-05-06 18:14 | CTR_ITS ---
PROCEDURE INFORMATION: Exam: CT Head Without Contrast Exam date and time: 05/06/2025 9:10 AM Age: 20 years old Clinical indication: Other: Self inflicted head injury. TECHNIQUE: Imaging protocol: Computed tomography of the head without contrast. Radiation optimization: All CT scans at this facility use at least one of these dose optimization techniques: automated exposure control; mA and/or kV adjustment per patient size (includes targeted exams where dose is matched to clinical indication); or iterative reconstruction. COMPARISON: CT head wo con* [id number] 03/23/2024 6:53 PM RADIATION DOSE METRICS: Total DLP (mGy-cm): 1145.08 FINDINGS: Brain: Normal. No hemorrhage. Unremarkable white matter. No mass effect. No CT evidence of acute infarct. Cerebral ventricles: No ventriculomegaly. Paranasal sinuses: Visualized sinuses are unremarkable. No fluid levels. Mastoid air cells: Visualized mastoid air cells are well aerated. Auditory system: Clear middle ear cavities bilaterally. Bones: Unremarkable. No acute fracture. Soft tissues: Otherwise, unremarkable. CT/CT head wo con* [id number] IMPRESSION: No acute intracranial abnormality.
[2025-05-06 20:23] VITALS: RESP 17
--- NOTE | 2025-05-06 20:23 | PC.NURSE ---
vitals not done per nurse, pt asleep in the floor in his room, resp 17,
--- NOTE | 2025-05-06 20:24 | PC.NURSE ---
room check not done per nurse, will do pt safety check when pt is awake
[2025-05-07 06:00] VITALS: RESP 18
--- NOTE | 2025-05-07 06:36 | PC.NURSE ---
vitals not done per nurse, resp 18
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
--- NOTE | 2025-05-07 09:40 | PC.NURSE ---
Pt. stated his bio mother when he was 4 years old. Pt. stated he hates his stepmom and said she is every bad word that she can be called and he wants to kill her. Pt. stated he is ready for his grandma to just . Pt. stated he wanted everyone who ever loved or cared about him to and pt. believes he will never be happy until this happens. Pt. states that he is full of anger and rage and has not had benjie in hears. Pt. said his anger is turning his body into a weapon and he wants to kill everybody. Pt. started crying harder. Signee gave pt. lou Gutierrez and Geremias.
--- NOTE | 2025-05-07 13:13 | P.NPUPN_ITS ---
Subjective NPU 2 Subjective: Patient presented today reporting that he is doing all right. He reports that since his mother he has struggled to have any periods of benjie that seem to sustain themselves. He reports occasionally things will happen that he has a momentary sign of benjie or improvement but that it is short-lived and he goes back to being somewhat miserable. He reports he does not know if it is a medication thing or a problem with just him. We discussed even considering this possibility shows significant growth especially given how this week has gone. We discussed the pathway to discharge including him being well enough to take off of one-to-one, likely tomorrow and then consideration of discharge if he is able to function on the unit without a one-to-one. He reports that he would likely just go back to his grandparents. We discussed having to take get some resolution about the cannabis use given the role that it is played in the complex there. We discussed the risks, benefits and alternatives of restarting his Abilify and he understood and agreed to proceed as is documented in this note. Mental Status Exam 2 MSE Comments: This is a morbidly obese, white male, in hospital scrubs, with limited grooming and eye contact with poor hygiene and malodorous. No abnormal involuntary motor movements, except for moderate psychomotor retardation. He was much more cooperative with exam in mild to moderate distress. Speech was decreased in rate and normal in volume and monotone in quality. Mood described as depressed. Affect was restricted in range and mood congruent. Thought process was linear and organized. Thought content: patient denied current suicidal or homicidal ideation There were no delusions reported or noted, patient denied any auditory or visual hallucinations. Attention, concentration, and memory appeared intact, but none were formally tested. Patient was alert and oriented x3. Insight is fair, judgment is limited but improving and impulse control is improving. Intellectual ability appeared limited versus impaired. Vitals/I&O/Wt Last Vital Signs Temp 97.8 F 05/06/25 06:00 Pulse 117 H 05/06/25 06:00 Resp 18 05/07/25 06:00 BP 118/65 05/06/25 06:00 Pulse Ox 95 05/06/25 06:00 O2 Del Method Room Air 05/04/25 20:29 Data NPU 05/05/25 17:59 05/05/25 17:59 A&P Assessment and plan 1. Suicidal ideation: 2. Generalized anxiety disorder: 3. Mild intellectual disability: 4. Borderline intellectual functionin. Major depressive disorder, recurrent: 6. DMDD (disruptive mood dysregulation disorder): 7. Bipolar disorder current episode depressed: Plan: This is a 20-year-old, white male, with a long history of mental health issues, who presented to the hospital because of suicidal thoughts and homicidal thoughts, aggressive feelings towards his family due to disagreements recently and a history of multiple inpatient hospitalizations, hx of alleged testicular cancer and once again noncompliant with medication reporting that he is lacking any willingness to collaborate in treatment, take medications and would rather just . 1. Recommend restarting Abilify with goal for long-acting injectable. Patient continued to refuse medication but continue to get significant as needed medication with each of his outburst. He has continued to get his medication via as needed circumstances with today they are only being 1 significant outburst but the need for IM medication has been critical and keeping him safe and the staff safe as he has generally required restraints multiple times each day. Today he had an episode towards the end of that shift but I am medication offered as he would not do p.o. medication was able to prevent an event today. Patient reported he would consider oral medications again 2. Continue 1:1 checks for safety. Consider switching back to every 15 minute checks tomorrow. 3. Encourage individual, group, and milieu therapies. 4. Gather collateral information. 5. Encouraged sober living treatment after discharge at the highest level care to which he is willing to commit. 6. Evaluate against the backdrop of the 96-hour hold. 7. Recommend CT scan after the latest episode but patient unwilling to contract for safety and currently is too agitated to attempt a CT. Discussed the need to keep him safe as well as staff safe and right now he is current behavior is antithetical to that plan for CT. PDMP PDMP Reviewed: Not Reviewed Involuntary Hold Information 2 Hold Status: Legal Status: 96 Hour Hold Date/Time Hold Expires: 05/09/25 @ 11:45 96 Hour Hold: 96 Hour Involuntary Admission: Yes Other Hold: Hold End Date: 03/31/24 Attestations NPU 2 Medical Necessity Statement*: Inpatient hospitalization is medically necessary and the clinically appropriate intervention at this time.? We will monitor medications and make changes as indicated.? Likely length of stay 3-5 days.? 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
[2025-05-07 14:00] VITALS: BP 129/79; PULSE 95; RESP 18; TEMP 37.1; O2SAT 99
--- NOTE | 2025-05-07 14:36 | PC.NURSE ---
Pt.'s adopted mom called, but she was not listed on his list to give information to.
[2025-05-07 20:26] VITALS: BP 143/84; PULSE 87; RESP 18; TEMP 36.7; O2SAT 97
[2025-05-08 05:46] VITALS: RESP 14
--- NOTE | 2025-05-08 05:46 | PC.NURSE ---
vitals not done per nurse, pt resting peacefully, resp 14
--- NOTE | 2025-05-08 08:55 | PC.NURSE ---
Dr. Su gave verbal order to DC one to one sitter.
--- NOTE | 2025-05-08 09:49 | PC.NURSE ---
Pt. asked the COOKIE MIXER HELPER if she would sit with him and talk to him because he was getting bored. COOKIE MIXER HELPER does not have time to sit with pt.
[2025-05-08 14:00] VITALS: BP 123/82; PULSE 95; RESP 18; TEMP 36.9; O2SAT 97
--- NOTE | 2025-05-08 17:49 | P.NPUPN_ITS ---
Subjective NPU 2 Subjective: Patient presented today reporting that he is doing fine and appears optimistic about moving forward with discharge and going back home. He reports that he has been speaking with his family and things are going well. He has agreed to reengage with treatment and attempt to consider some alternative options to wellness outside of cannabis. He denied any side effects to his medication and we discussed the likelihood of discharge tomorrow. Mental Status Exam 2 MSE Comments: This is a morbidly obese, white male, in hospital scrubs, with limited grooming and eye contact with poor hygiene and malodorous. No abnormal involuntary motor movements, except for mild psychomotor retardation. He was much more cooperative with exam in no acute distress. Speech was more normal in rate and normal in volume and rate and prosody. Mood described as better. Affect was mood congruent and brighter. Thought process was linear and organized. Thought content: patient denied current suicidal or homicidal ideation There were no delusions reported or noted, patient denied any auditory or visual hallucinations. Attention, concentration, and memory appeared intact, but none were formally tested. Patient was alert and oriented x3. Insight is fair, judgment is improving and impulse control is improving. Intellectual ability appeared limited. Vitals/I&O/Wt Last Vital Signs Temp 98.9 F 05/08/25 21:51 Pulse 90 05/08/25 21:51 Resp 18 05/08/25 21:51 BP 124/81 05/08/25 21:51 Pulse Ox 96 05/08/25 21:51 O2 Del Method Room Air 05/08/25 21:51 Data NPU 05/05/25 17:59 05/05/25 17:59 A&P Assessment and plan 1. Suicidal ideation: 2. Generalized anxiety disorder: 3. Mild intellectual disability: 4. Borderline intellectual functionin. Major depressive disorder, recurrent: 6. DMDD (disruptive mood dysregulation disorder): 7. Bipolar disorder current episode depressed: Plan: This is a 20-year-old, white male, with a long history of mental health issues, who presented to the hospital because of suicidal thoughts and homicidal thoughts, aggressive feelings towards his family due to disagreements recently and a history of multiple inpatient hospitalizations, hx of alleged testicular cancer and once again noncompliant with medication reporting that he is lacking any willingness to collaborate in treatment, take medications and would rather just . 1. Recommend restarting Abilify with goal for long-acting injectable. Patient continued to refuse medication but continue to get significant as needed medication with each of his outburst. He has continued to get his medication via as needed circumstances with today they are only being 1 significant outburst but the need for IM medication has been critical and keeping him safe and the staff safe as he has generally required restraints multiple times each day. Today he had an episode towards the end of that shift but I am medication offered as he would not do p.o. medication was able to prevent an event today. Patient taking medication as prescribed. Will offer long-acting injectable as part of discharge plan. 2. Continue 1:1 checks for safety. Return to every 15 minute checks without incident. 3. Encourage individual, group, and milieu therapies. 4. Gather collateral information. 5. Encouraged sober living treatment after discharge at the highest level care to which he is willing to commit. 6. Evaluate against the backdrop of the 96-hour hold. 7. Tentative plan for discharge tomorrow. PDMP PDMP Reviewed: Not Reviewed Involuntary Hold Information 2 Hold Status: Legal Status: 96 Hour Hold Date/Time Hold Expires: 05/09/25 @ 11:45 96 Hour Hold: 96 Hour Involuntary Admission: Yes Other Hold: Hold End Date: 03/31/24 Attestations NPU 2 Medical Necessity Statement*: Inpatient hospitalization is medically necessary and the clinically appropriate intervention at this time.? We will monitor medications and make changes as indicated.? Likely length of stay 1 day.? 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
[2025-05-08 21:51] VITALS: BP 124/81; PULSE 90; RESP 18; TEMP 37.2; O2SAT 96
[2025-05-09 06:00] VITALS: BP 107/67; PULSE 60; RESP 18; TEMP 36.6; O2SAT 97
--- NOTE | 2025-05-09 11:54 | PC.NURSE ---
Dr. Su gave verbal order for Abilify Asimtufii 960mg IM Q 2 months.
--- NOTE | 2025-05-09 12:21 | PC.NURSE ---
Invega 960mg IM given today in left deltoid.
[2025-05-09 13:48] VITALS: BP 135/83; PULSE 88; RESP 18; TEMP 36.8; O2SAT 97
[2025-05-09 15:08] VITALS: BP 135/83; PULSE 88; RESP 18; TEMP 36.8; O2SAT 97
== END 2025-05-09 16:33 | disposition home or self-care (01) | DRG 753 ==
LOC: ER 12:28 → NP 12:30
PROVIDERS: Admitting Provider Psychiatry & Neurology Psychiatry; Emergency Provider Physician Assistant; PCP Family Medicine; Visit Provider Psychiatry & Neurology Psychiatry
DX: F31.30 Bipolar disorder, current episode depressed, mild or moderate severity, unspecified (principal); R45.851 Suicidal ideations; F41.1 Generalized anxiety disorder; F70 Mild intellectual disabilities; F34.81 Disruptive mood dysregulation disorder; R45.850 Homicidal ideations; Z63.8 Other specified problems related to primary support group; F17.290 Nicotine dependence, other tobacco product, uncomplicated; E66.01 Morbid (severe) obesity due to excess calories; Z68.41 Body mass index [BMI] 40.0-44.9, adult
CPT/HCPCS: 36415; 36416; 70450; 80053; 80306; 80307; 82962; 85025; 86704; 86803; 87340; 87806; 96372; 97150; 97165; 99285; J1200; J1630; J2060; J3486; J9999